=== PATIENT | female | born 1960 | race Caucasian/White ===

== ENCOUNTER 2018-10-04 14:48 | Emergency (ER) | payer OTHER ==
[2018-10-04 15:04] VITALS: BP 158/87
--- NOTE | 2018-10-04 15:19 | UC ---
Shoulder Pain HPI - HPI Summary HPI Summary: 57-year-old woman comes to clinic with a chief complaint of left shoulder pain been going on about a week and a half. No known trauma. She's had some pain in the shoulder on and off for the past but never this severe and it always went away on its own. Pain is worse with movement. The location of the pain is directly in the shoulder joint itself. No radiation of pain to the neck or down the arm or into the elbow. No weakness or numbness. There is some decreased range of motion. Patient did take some ibuprofen which did help but, the pain comes back. No prior shoulder surgeries. - History of Current Complaint Chief Complaint: UCUpperExtremity Stated Complaint: SHOULDER PAIN Time Seen by Provider: 10/04/18 14:58 Pain Intensity: 8 - Allergies/Home Medications Allergies/Adverse Reactions: Allergies Allergy/AdvReac Type Severity Reaction Status Date / Time No Known Allergies Allergy Verified 10/04/18 15:05 PMH/Surg Hx/FS Hx/Imm Hx Previously Healthy: Yes - Surgical History Surgical History: Yes Surgery Procedure, Year, and Place: Varicose vein stripping - Family History Known Family History: Positive: Non-Contributory - Social History Alcohol Use: Occasionally Substance Use Type: None Smoking Status (MU): Never Smoked Tobacco Review of Systems All Other Systems Reviewed And Are Negative: Yes Constitutional: Positive: Negative Skin: Positive: Negative Eyes: Positive: Negative ENT: Positive: Negative Respiratory: Positive: Negative Cardiovascular: Positive: Negative Gastrointestinal: Positive: Negative Motor: Positive: Decreased ROM Neurovascular: Positive: Negative Musculoskeletal: Positive: Other: - see hpi Neurological: Positive: Negative Psychological: Positive: Negative Is Patient Immunocompromised?: No Physical Exam Triage Information Reviewed: Yes Appearance: Well-Appearing, Well-Nourished, Pain Distress - with movement of left arm Vital Signs: Initial Vital Signs Temp 97.7 F 10/04/18 14:59 Pulse 81 10/04/18 14:59 Resp 18 10/04/18 14:59 BP 158/87 10/04/18 14:59 Pulse Ox 97 10/04/18 14:59 Vital Signs Reviewed: Yes Eye Exam: Normal Eyes: Positive: Conjunctiva Clear Neck exam: Normal Neck: Positive: Supple, Nontender Respiratory Exam: Normal Respiratory: Positive: Chest non-tender, Lungs clear, Normal breath sounds, No respiratory distress Cardiovascular: Positive: RRR Musculoskeletal: Positive: Other: - Tender to palpation in the left shoulder joint primarily in the anterior aspect. Neck is nontender to palpation. Normal radial pulses bilaterally. Bilateral arms capillary refill is normal with no sensation deficit. Fingers wrist elbows have full range of motion with strength 5 out of 5. Shoulder range of motion; extension on the left is 30 on the right is 120. Abduction on the left is 30 on the right is 120. Internal rotation on the left is L1 on the right is T9. Neurological: Positive: Alert, Muscle Tone Normal Psychological Exam: Normal Psychological: Positive: Age Appropriate Behavior Skin Exam: Normal Shoulder Course/Dx - Course Course Of Treatment: Order Information: SHOULDER LEFT 2+ VWS. Accession Number : [id number]. CPT: 21441. INDICATION: Left shoulder pain. TECHNIQUE: 4 views of the left shoulder were obtained. FINDINGS: The bones are in normal alignment. No fracture is seen. Joint spaces appear maintained. There are calcific densities and larger more amorphous calcific areas which project. adjacent to the superior lateral aspect of the humeral head most consistent with calcific. tendinitis or bursitis. IMPRESSION: FINDINGS MOST CONSISTENT WITH CALCIFIC TENDINITIS OR BURSITIS. . <Electronically signed by Larry Eddy MD in OV> [id number]. I discussed the x-ray report with patient. We discussed range of motion exercises for the shoulder. The plan is ibuprofen and ice maintain range of motion as best possible and follow-up with orthopedics. - Differential Dx/Diagnosis Provider Diagnosis: Left shoulder pain Discharge - Sign-Out/Discharge Documenting (check all that apply): Patient Departure All imaging exams completed and their final reports reviewed: Yes - Discharge Plan Condition: Stable Disposition: HOME Patient Education Materials: Shoulder Pain (ED), Calcific Tendinitis (ED) Referrals: Wendy Philippe MD [Primary Care Provider] - Dennis Zuniga MD [Medical Doctor] - Additional Instructions: FOLLOW UP WITH ORTHOPEDICS. GET RECHECKED FOR ANY WORSENING OF YOUR CONDITION; PAIN, WEAKNESS, NUMBNESS, CHEST PAIN, SHORTNESS OF BREATH, YOU FEEL ILL OR QUESTIONS OR CONCERNS. - Billing Disposition and Condition Condition: STABLE Disposition: Home
== END 2018-10-04 16:00 | disposition home or self-care (01) ==
LOC: UCEAST 14:48
DX: M25.512 Pain in left shoulder (principal)
CPT/HCPCS: 99212; G0463

== ENCOUNTER 2019-06-04 10:18 | Emergency (ER) | payer OTHER ==
[2019-06-04 10:44] VITALS: BP 123/74
--- NOTE | 2019-06-04 11:04 | UC ---
Skin Complaint HPI - HPI Summary HPI Summary: pt was pulling weeds in the garden, and has been having an itchy rash, and it is spreading. afebrile. Patient is a 58 year old female, who present today to the urgent care with rash on her hands for past 1 week. She reports that she was pulling weeds in her garden, ragweed after which she notices a rash for the first time.. There is itching and now she has noticed some spots on her face. Denies any fever, chills, cough, chest pain or shortness of breath . No diaphoresis. Denies any abdominal pain , nausea or vomiting , diarrhea or constipation. She has tried [id number] hydrocortisone without much relief - History of Current Complaint Chief Complaint: UCRash Time Seen by Provider: 06/04/19 10:44 Stated Complaint: ITCHY RASH Hx Obtained From: Patient Hx Last Menstrual Period: post menopause ?: No Pain Intensity: 6 - Allergy/Home Medications Allergies/Adverse Reactions: Allergies Allergy/AdvReac Type Severity Reaction Status Date / Time diphenhydramine Allergy Palpitation Verified 06/04/19 10:45 [From Juan Manuel] s PMH/Surg Hx/FS Hx/Imm Hx - Additional Past Medical History Additional PMH: Past Medical History : None Past Surgical History: Varicose veins surgery, hernia surgery Family History : non contributory Social History : Occasional alcohol, non smoker, no drug use. Previously Healthy: Yes - Surgical History Surgical History: Yes Surgery Procedure, Year, and Place: Varicose vein stripping. hernia repair. IVF. wisdome teeth - Family History Known Family History: Positive: Non-Contributory - Social History Alcohol Use: Occasionally Substance Use Type: None Smoking Status (MU): Never Smoked Tobacco Review of Systems All Other Systems Reviewed And Are Negative: Yes Constitutional: Positive: Negative Skin: Positive: Rash - Itchy Eyes: Positive: Negative ENT: Positive: Negative Respiratory: Positive: Negative Cardiovascular: Positive: Negative Gastrointestinal: Positive: Negative Genitourinary: Positive: Negative Motor: Positive: Negative Neurovascular: Positive: Negative Musculoskeletal: Positive: Negative Neurological: Positive: Negative Psychological: Positive: Negative Is Patient Immunocompromised?: No Physical Exam - Summary Physical Exam Summary: Vital Signs Reviewed: Yes A+Ox3, no distress Eyes: Conjunctiva Clear ENT: Hearing grossly normal neck: supple Respiratory: Positive: No respiratory distress, No accessory muscle use Cardiovascular: skin color reflect adequate perfusion Musculoskeletal Exam: ROSSI x 4 without difficulty Neurological: Positive: Alert, ambulatory without difficulty Psychological: Positive: Normal Response To Family Skin: Positive: There is small erythematous lesions measuring approximately 1 cm in size, with some scabbing noted as the patient scratched. No drainage noted. No fluctuation. Lesions are mainly noted on the forearm and hand. 2 lesions noted on the right side of her face Triage Information Reviewed: Yes Vital Signs: Initial Vital Signs Temp 98.2 F 06/04/19 10:40 Pulse 76 06/04/19 10:40 Resp 18 06/04/19 10:40 BP 123/74 06/04/19 10:40 Pulse Ox 98 06/04/19 10:40 Vital Signs Reviewed: Yes Course/Dx - Course Course Of Treatment: During the visit today, we discussed the findings and further plan. I will prescribe the medication to the pharmacy . Patient expressed understanding . - Diagnoses Provider Diagnosis: Allergic contact dermatitis Discharge - Sign-Out/Discharge Documenting (check all that apply): Patient Departure All imaging exams completed and their final reports reviewed: No Studies - Discharge Plan Condition: Stable Disposition: HOME Prescriptions: predniSONE TAB* [Deltasone 10 MG TAB*] 10 mg PO DAILY 12 Days #30 tab Patient Education Materials: Contact Dermatitis (ED) Referrals: Wendy Philippe MD [Primary Care Provider] - 1 Week Additional Instructions: Please start taking the medication as prescribed to the pharmacy . You can apply topical hydrocortisone for itching Follow up with your primary care doctor in 1 week Patients blood pressure slightly high in Urgent care today (prehypertensive range) , plan follow up with PCP for better control Return to Urgent care / ER if symptoms get worse. - Billing Disposition and Condition Condition: STABLE Disposition: Home
== END 2019-06-04 11:12 | disposition home or self-care (01) ==
LOC: UCEAST 10:18
DX: L23.9 Allergic contact dermatitis, unspecified cause (principal)
CPT/HCPCS: 99212; G0463

== ENCOUNTER → 2019-07-31 | Day surgery (SDC) | payer OTHER ==
[~2019-07-31] MED LIST: Acetaminophen IV 1GM/100ML * 1,000 MG/100 ML VIAL IVPB ONE; Acetaminophen IV 1GM/100ML * 100 ML ONE; Buffered Lidocaine 1% SYRIN* 1 ML/SYRINGE INTRADERM ONE; Bupivacaine 0.5%* 50 ML MDV VIAL ONE; Dexamethasone IV* 4 MG/ML 1 ML (4 MG) ONE; DiMENhydriNATE IV* 50 MG/ML VIAL IV PUSH PRN; DiMENhydriNATE IV* 50 MG/ML VIAL ONE; Famotidine IV* 10 MG/ML 2 ML (20 mg) IV ONE; Famotidine IV* 10 MG/ML 2 ML (20 mg) ONE; Glycopyrrolate IV* 0.2 MG/ML 1 ML VIAL ONE; Ketorolac INJ* 30 MG/ML 1 ML VIAL ONE; Lactated Ringers 1000 ML Bag* 1,000 ML IV SCH; Lidocaine 2% PF * 5 ML VIAL ONE; Midazolam* 1 MG/ML 5 ML VIAL (5 MG) ONE; Naloxone* 0.4 MG/ML 1 ML VIAL IV PRN; Neostigmine Methylsulfate* 1 MG/ML 10 ML VIAL (1 mg/ml) ONE; Ondansetron INJ* 2 MG/ML VIAL ONE; Propofol* 10 MG/ML 20 ML BTL ONE; Rocuronium* 10 MG/ML VIAL ONE; Succinylcholine* 20 MG/ML 10 ML VIAL ONE; ceFAZolin 2 GM PREMIX in ORs 2 GM/50 ML BAG ONE; fentaNYL* 50 MCG/ML 5 ML VIAL (250 MCG VIAL) ONE; oxyCODONE TAB* 5 MG TAB ONE; oxyCODONE TAB* 5 MG TAB PO PRN
[2019-07-31 18:23] VITALS: BP 143/85
--- NOTE | 2019-07-31 22:22 | OP ---
DATE OF OPERATION: 07/31/19 - [facility] DATE OF : 64 SURGEON: Az Monsalve MD CHEMICAL TREATMENT OPERATOR: TR Bazan PRE-OP DIAGNOSIS: Incarcerated umbilical hernia. POST-OP DIAGNOSIS: Incarcerated umbilical hernia. OPERATIVE PROCEDURE: Robotic repair of incarcerated umbilical hernia with mesh. INDICATIONS: Incarcerated umbilical hernia. Risks included but not limited to bleeding, infection. DESCRIPTION OF PROCEDURE: The patient was taken to the operating room and placed supine. Preoperative antibiotics were given. After successful induction of general endotracheal anesthesia, the abdomen was prepped and draped in sterile fashion. Time-out was performed, indicating correct patient and correct procedure. A left upper quadrant 5 mm trocar was placed under direct visualization of the camera using a bladeless Optiview trocar. Pneumo- peritoneum was achieved to 15 mmHg. Camera was placed in the abdomen and the abdomen was scanned. There was no obvious injury from trocar placement. An 8 mm robotic trocar was placed in the left lateral position and a 12 mm AirSeal trocar was placed in the left lower quadrant. The 5 mm trocar was replaced with an 8 mm robotic trocar. The patient was tilted slightly towards her right towards the robot. The robot was brought in and docked. An adhesion from the omentum to the incarcerated umbilical hernia was gently taken down using a cautery and scissors along an avascular plane. The peritoneum was taken down and a large lipomatous mass was removed from the umbilical hernia site. The defect was closed with a running 0 StrataFix suture and a small Ventralex mesh was then tacked up against this closure and then sutured to the fascia using running 2-0 V-Loc suture. Peritoneum was closed with running 2-0 V-Loc suture. V-0 suture was also used to suture the mesh in place. The abdomen was scanned and there was no obvious injury. Pneumoperitoneum was released from the abdomen and the trocars were removed. The incision sites were closed at the skin level with Monocryl and glue. She tolerated the procedure well. She was taken to recovery room in stable condition after extubation. [id number]/CPS #: [id number] MTDD
== END | disposition home or self-care (01) ==
LOC: OR 10:40
PROVIDERS: ATTEND Surgery
DX: K42.0 Umbilical hernia with obstruction, without gangrene (principal); I83.90 Asymptomatic varicose veins of unspecified lower extremity; J30.89 Other allergic rhinitis
CPT/HCPCS: 49653; S2900; A9270-GY; C1781; J0330; J0690; J1100; J1240; J1885; J2250; J2405; J2704; J2710; J3010; J3490